=== PATIENT | female | born 1990 | race African-American/Black ===

== ENCOUNTER 2023-10-16 09:22 | Emergency (ER) | payer OTHER, SELFPAY ==
[2023-10-16 10:25] LABS: SARS-CoV-2 NAA Rapid Test Not Detected (NotDetected)
== END 2023-10-16 10:48 | disposition home or self-care (01) ==
LOC: CSHERS 09:22
DX: O99.513 Diseases of the respiratory system complicating pregnancy, third trimester (principal); J10.1 Influenza due to other identified influenza virus with other respiratory manifestations; O24.113 Pre-existing type 2 diabetes mellitus, in pregnancy, third trimester; Z20.822 Contact with and (suspected) exposure to COVID-19; Z3A.38 38 weeks gestation of pregnancy
CPT/HCPCS: 99283

== ENCOUNTER 2023-10-31 00:02 | Day surgery (SDC) | payer SELFPAY ==
[2023-10-31] MEDS ORDERED: diphenhydrAMINE 50 MG/ML VIAL ONE (01:25)
[2023-10-31] MEDS ORDERED: Metoclopramide HCl 10 MG/2 ML VIAL ONE (01:25)
[2023-10-31 02:04] LABS: #Eosinphils 0.2 10x3/uL (0.0-0.5); #Monocytes 0.6 10x3/uL (0.0-1.1); #Neutrophils 5.9 10x3/uL (1.5-8.4); %Basophils 0.2 % (0.0-2.0); %Eosinophils 2.6 % (0.0-6.0); %Monocytes 7.2 % (0.0-10.0); %Neutrophils 71.5 % (40.0-75.0); Hematocrit 32.2 % (34.9-44.5); Hemoglobin 9.9 g/dL (12.0-15.5); Mean Corpuscular HGB CONC 30.7 g/dL (32.0-36.0); Mean Corpuscular Hemoglobin 25.7 pg (27.0-33.0); Mean Corpuscular Volume 83.6 fl (81.6-98.3); Mean Platelet Volume 9.9 fl (7.4-10.4); Platelet Count 346 10x3/uL (150-450); Red Blood Cell (RBC) Count 3.85 10x6/uL (3.90-5.03); White Blood Cell (WBC) Count 8.2 10x3/uL (3.5-10.5)
[2023-10-31 02:06] LABS: ALT (SGPT) 23 U/L (8-55); AST (SGOT) 23 U/L (5-34); Albumin 2.9 g/dL (3.5-5.0); Alkaline Phosphatase 110 U/L (40-110); Anion Gap 11 mmol/L (10-20); BUN (Urea Nitrogen) 7 mg/dL (7.0-18.7); Bilirubin, Total 0.2 mg/dL (0.2-1.2); Calc. Creatinine Clearance 0 mL/min (70-130); Calcium 8.8 mg/dL (7.8-10.44); Carbon Dioxide 24 mmol/L (22-29); Chloride 109 mmol/L (98-107); Estimated GFR 99; Globulin 3.1 g/dL (2.4-3.5); Glucose 116 mg/dL (70-105); Potassium 3.9 mmol/L (3.5-5.1); Sodium 140 mmol/L (136-145)
[2023-10-31] MEDS ORDERED: Magnesium 2 GM/50 ML BAG (IN WATER) ONE ×2 (04:06→04:13)
[2023-10-31] MEDS ORDERED: Dexamethasone 10 MG/ML VIAL ONE (05:28)
[2023-10-31 05:36] LABS: Bilirubin Neg (Negative); Blood, Urine 10 (Negative); Clarity Clear (Clear); Glucose, Urine (Dipstick) Normal (Negative); Ketone, Urine Negative (Negative); Leukocyte Negative (Negative); Nitrite Negative (Negative); Protein, Urine (Dipstick) 15 mg/dl (Neg-Trace); Specific Gravity, Urine 1.015 (1.005-1.030); pH, Urine 6.5 (5.0-9.0)
[2023-10-31 05:55] LABS: Bacteria/HPF None Seen HPF (None Seen); CAUTI Indications for Culture Pelvic or flank pain; RBC/HPF 0-3 HPF (0-3); Squamous Epithelial 0-3 HPF (0-3); WBC/HPF 0-3 HPF (0-3)
[2023-10-31 05:56] LABS: Urine Culture Reflex No No
[2023-10-31] MEDS ORDERED: Simethicone Chewable 80 MG TAB PO PRN (07:18)
[2023-10-31] MEDS ORDERED: Furosemide 20 MG TAB PO SCH (07:30)
[2023-10-31] MEDS ORDERED: Dicyclomine 10 MG CAP PO SCH (07:30)
[2023-10-31] MEDS ORDERED: Acetaminophen 500 MG TAB PO SCH (07:30)
[2023-10-31 08:54] VITALS: BMI 44.9
[2023-10-31 09:04] LABS: Creatinine, Urine 188.6 mg/dL (47-110)
== END 2023-10-31 09:30 | disposition home or self-care (01) ==
LOC: CSHERS 00:02 → CSHLD/OP 06:00
PROVIDERS: ATTEND Obstetrics & Gynecology
DX: O34.211 Maternal care for low transverse scar from previous cesarean delivery (principal); R51.9 Headache, unspecified; R42 Dizziness and giddiness; O99.893 Other specified diseases and conditions complicating puerperium; E11.9 Type 2 diabetes mellitus without complications; E66.9 Obesity, unspecified; J45.909 Unspecified asthma, uncomplicated; Z79.84 Long term (current) use of oral hypoglycemic drugs; Z79.899 Other long term (current) drug therapy
CPT/HCPCS: 70450; 71045; 80053; 81001; 82570; 84156; 85025; 96361; 96365; 96375; J1100; J1200; J2765; J3475

== ENCOUNTER 2024-09-26 22:31 | Emergency (ER) | payer OTHER | END 2024-09-26 23:40 | disposition home or self-care (01) | LOC: CSHERS 22:31 | DX: B34.9 Viral infection, unspecified (principal); E11.9 Type 2 diabetes mellitus without complications; Z55.0 Illiteracy and low-level literacy | CPT/HCPCS: 99283 ==

== ENCOUNTER 2025-11-07 11:26 | Emergency (ER) | payer OTHER, SELFPAY ==
[2025-11-07] MEDS ORDERED: Dexamethasone 10 MG/ML VIAL ONE (11:46)
[2025-11-07 12:10] LABS: #Basophils 0.04 10x3/uL (0.0-0.2); #Eosinophils 0.10 10x3/uL (0.0-0.5); #Monocytes 0.43 10x3/uL (0.0-1.1); #Neutrophils 3.34 10x3/uL (1.5-8.4); %Basophils 0.6 % (0.0-2.0); %Eosinophils 1.6 % (0.0-6.0); %Lymphocytes 39.0 % (18.0-47.0); %Monocytes 6.7 % (0.0-10.0); %Neutrophils 51.9 % (40.0-75.0); Hematocrit 36.1 % (34.9-44.5); Hemoglobin 11.2 g/dL (12.0-15.5); Mean Corpuscular Hemoglobin 24.1 pg (27.0-33.0); Mean Corpuscular Volume 77.8 fL (81.6-98.3); Platelet Count 328 10x3/uL (150-450); Red Blood Cell (RBC) Count 4.64 10x6/uL (3.90-5.03); White Blood Cell (WBC) Count 6.43 10x3/uL (3.5-10.5)
[2025-11-07 12:28] LABS: ALT (SGPT) 19 U/L (Less than 34); AST (SGOT) 23 U/L (11-34); Albumin 3.9 g/dL (3.1-4.5); Alkaline Phosphatase 46 U/L (40-110); Anion Gap 11 mmol/L (10-20); BUN (Urea Nitrogen) 12 mg/dL (7.0-18.7); Bilirubin, Total 0.3 mg/dL (0.3-1.2); Calc. Creatinine Clearance 0 mL/min (70-130); Calcium 9.3 mg/dL (7.8-10.44); Carbon Dioxide 26 mmol/L (22-29); Chloride 106 mmol/L (98-107); Globulin 2.8 g/dL (2.4-3.5); Glucose 119 mg/dL (70-105); Potassium 4.3 mmol/L (3.5-5.1); Sodium 139 mmol/L (136-145)
[2025-11-07 12:31] LABS: Troponin I Less than 0.010 ng/mL (< 0.028)
== END 2025-11-07 13:48 | disposition home or self-care (01) ==
LOC: CSHERS 11:26
DX: J45.901 Unspecified asthma with (acute) exacerbation (principal); E11.9 Type 2 diabetes mellitus without complications; Z79.84 Long term (current) use of oral hypoglycemic drugs
CPT/HCPCS: 71045; 71275; 80053; 84484; 85025; 85379; 87428; 93005; 94640; 94760; 96374; J1100